=== PATIENT | female | born 1980 | race Two or more races ===

== ENCOUNTER 2023-04-22 14:47 | Outpatient (AMB) | payer MEDICAID, SELFPAY ==
--- NOTE | 2023-04-22 14:54 | MHC.OFFVIS ---
Intake Vital Signs 04/22/23 15:01 Height 5 ft 5 in Weight 192 lb 2 oz BMI 32.0 BP 126/68 Blood Pressure Location Lt brachial Position Sitting Respiration 16 Pulse 80 Pulse Source Pulse Oximeter Pulse Oximetry (%) 98 Oxygen Delivery Method Room Air Intake Visit Reasons: ENP-Nocturnal dyspnea-Confirmed Intake Note: Pt presents for new pt evaluation for nocturnal dyspnea. Pt reports snoring, waking up tired as if she has not had a full nights rest. 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 Pt reports snoring, gasping arousals with chest pain. Pt reports witnessed apnea spells. Pt has difficulty falling asleep and uses OTC Sleep Aids and it helps her to fall asleep and staying sleep. Sleep questionnaire: Have you ever been diagnosed with a sleep disorder? No. Have you ever had a sleep study in the past? No. Have you ever been treated for a sleep disorder? No. Do you take medications for a sleep disorder? OTC, [facility]. Do you snore? Yes. Do you wake up gasping at night? Yes. Do you have episodes of apneas? Yes. If yes, are they witnessed? Yes, by her . Do you have episodes of nocturnal chest pain or dyspnea? Yes, chest pain with palpitation. Do you have difficulty initiating sleep? Yes. Do you have difficulty maintaining sleep? No. Do you wake up tired? Yes. Do you have headaches upon awakening? Yes, little headache ,but goes away within 30 min. Do you wake up with dry mouth or throat? Yes. Do you have GERD? No. Do you have nocturia? Yes, 3-4 times. Do you have nocturnal leg cramps? No. Do you have symptoms of restless legs? No. Do you act out your dreams? No. Sleep hygiene questionnaire: What is your usual sleep routine? Usual bedtime is at 10 pm; Usual wake up time is at 4-5 am. Do you take naps? No. Is your sleep environment cool, dark, and quiet? Yes. Do you exercise? Walking. Do you take caffeine or other stimulants? Coffee in the morning. Do you use electronics in bed? TV before bedtime. What is your work schedule? 9 am to 3:30 pm. Hypersomnolence questionnaire: Do you have daytime tiredness or fatigue? Yes. Do you easily fall asleep when inactive? No. Have you ever had episodes of sudden weakness? No. Have you ever had episodes of sudden weakness associated with strong emotions? No. PFSH Surgical History (Updated 04/22/23 @ 15:08 by Savannah Billings CMA) H/O breast augmentation H/O abdominoplasty Previous section Family History (Updated 04/22/23 @ 15:09 by Savannah Billings CMA) Father HTN (hypertension) Mother HTN (hypertension) Mother No problems noted. Social History (Updated 04/22/23 @ 15:10 by Savannah Billings CMA) Household Members: Family Housing: House Alcohol intake: current Alcohol intake frequency: a few times a week Alcohol type: hard liquor Patient Tobacco Use Status: Former Tobacco user Years Smoked: Quit 1 year ago Female Reproductive History Menstrual Age of Menarche: 10 Review of Systems Const All systems reviewed & are unremarkable except as noted in HPI and below Physical Exam Vital Signs: Last Vital Signs Pulse 80 04/22/23 15:01 Resp 16 04/22/23 15:01 BP 126/68 04/22/23 15:01 Pulse Ox 98 04/22/23 15:01 Oxygen Delivery Method Room Air 04/22/23 15:01 BMI result Body Mass Index 32.0 Const General: cooperative Nutritional Appearance: obese Orientation/consciousness: patient oriented x3 Neck Neck: Yes full ROM and Yes supple Resp Effort & Inspection: normal respiratory effort and able to speak in complete sentences Neuro General: patient oriented x3, gait normal and moves all extremities Cranial nerves: Yes CN's II-XII intact bilaterally Cognition (Neuro): normal cognition Gait exam (Neuro): Normal gait present Motor exam (neuro): 5/5 motor strength present throughout, Pronator motor function not present and no tremor noted Psych Appearance: grossly normal Mental Status: mental status grossly normal Speech and movement: Normal speech and movement present Affect: normal affect Attitude: cooperative Assessment & Plan Assessment & Plan (1) Snoring: Code(s): R06.83 - Snoring (2) Witnessed episode of apnea: Code(s): R06.81 - Apnea, not elsewhere classified (3) Daytime sleepiness: Code(s): R40.0 - Somnolence Plan Pt is advised to undergo home sleep study to assess for sleep apnea. Will f/u with pt after study to discuss results and appropriate treatment options. Sleep hygiene education provided. Limit electronic use before bedtime. Wt reduction advised. Pt to call with any worsening concerns or questions. Orders: Orders RT home sleep study Today R06.81 - Apnea, not elsewhere classified, R06.83 - Snoring, R40.0 - Somnolence Coding Level of Care Code New Pt Level 3 (44113) Diagnoses Snoring R06.83 Witnessed episode of apnea R06.81 Daytime sleepiness R40.0
[2023-04-22 15:01] VITALS: BP 126/68; PULSE 80; RESP 16; O2SAT 98; BMI 32.0
== END 2023-04-22 15:32 | disposition home or self-care (01) ==
PROVIDERS: PCP Physician Assistant Medical; Visit Provider Nurse Practitioner Family
DX: R06.83 Snoring (principal); R06.81 Apnea, not elsewhere classified; R40.0 Somnolence
CPT/HCPCS: 99203

== ENCOUNTER → 2023-04-22 14:47 | Outpatient (BNVA) | payer MEDICAID, SELFPAY | PROVIDERS: PCP Physician Assistant Medical; Visit Provider Nurse Practitioner Family | DX: R06.83 Snoring (principal); R06.81 Apnea, not elsewhere classified; R40.0 Somnolence | CPT/HCPCS: 99212 ==

== ENCOUNTER → 2023-06-23 14:21 | Outpatient (REF) | payer MEDICAID, SELFPAY | LOC: HO.SL 14:21 | PROVIDERS: Visit Provider Nurse Practitioner Family | DX: R40.0 Somnolence (principal); R06.83 Snoring; G47.33 Obstructive sleep apnea (adult) (pediatric) | CPT/HCPCS: 95806 ==

== ENCOUNTER → 2023-06-23 14:44 | Outpatient (BNV) | payer MEDICAID, SELFPAY | PROVIDERS: Visit Provider Psychiatry & Neurology Neurology | DX: G47.33 Obstructive sleep apnea (adult) (pediatric) (principal) | CPT/HCPCS: 95806 ==

== ENCOUNTER 2023-07-29 14:41 | Outpatient (AMB) | payer MEDICAID, SELFPAY ==
--- NOTE | 2023-07-29 14:59 | MHC.OFFVIS ---
Intake Vital Signs 07/29/23 15:07 Height 5 ft 5 in Weight 193 lb 8 oz BMI 32.2 BP 115/72 Blood Pressure Location Lt brachial Position Sitting Pulse 80 Pulse Source Pulse Oximeter Pulse Oximetry (%) 97 Oxygen Delivery Method Room Air Intake Visit Reasons: 4 mon f/u - CONF w/address Intake Note: Patient presents for 4 month F/U. Pt. is leaving for 3 weeks to [place]. She will be bringing CPAP machine but is wondering if compliance will transmit. Allergies No Known Allergies Allergy (Verified 07/29/23 15:06) HPI HPI Comments History of Present Illness Details 43 y/o female patient presents for follow up of sleep study. The home sleep study result was significant for a mild degree of sleep apnea. The AHI was 9/hr and oxygen toy was 82%. APAP [id number] ordered. Pt reports she picked up CPAP this morning. She will travel to next week. [facility] Surgical History H/O breast augmentation H/O abdominoplasty Previous section Family History Father HTN (hypertension) Mother HTN (hypertension) Mother No problems noted. Social History Household Members: Family Housing: House Alcohol intake: current Alcohol intake frequency: a few times a week Alcohol type: hard liquor Patient Tobacco Use Status: Former Tobacco user Years Smoked: Quit 1 year ago Female Reproductive History Menstrual Age of Menarche: 10 Review of Systems Const All systems reviewed & are unremarkable except as noted in HPI and below Physical Exam Vital Signs: Last Vital Signs Pulse 80 07/29/23 15:07 BP 115/72 07/29/23 15:07 Pulse Ox 97 07/29/23 15:07 Oxygen Delivery Method Room Air 07/29/23 15:07 BMI result Body Mass Index 32.2 Const General: cooperative Nutritional Appearance: obese Orientation/consciousness: patient oriented x3 Neck Neck: Yes full ROM and Yes supple Resp Effort & Inspection: normal respiratory effort and able to speak in complete sentences Neuro General: patient oriented x3, gait normal and moves all extremities Cranial nerves: Yes CN's II-XII intact bilaterally Cognition (Neuro): normal cognition Gait exam (Neuro): Normal gait present Motor exam (neuro): 5/5 motor strength present throughout, Pronator motor function not present and no tremor noted Psych Appearance: grossly normal Mental Status: mental status grossly normal Speech and movement: Normal speech and movement present Affect: normal affect Attitude: cooperative Assessment & Plan Assessment & Plan (1) [place] (obstructive sleep apnea): Comment: Mild degree of sleep apnea. The AHI was 9/hr, and oxygen toy was 82%. Code(s): G47.33 - Obstructive sleep apnea (adult) (pediatric) Plan Start APAP at [id number]. Stressed complaince, use CPAP nightly and more than 4 hrs. Advised patient to bring CPAP to DRDagoberto Garcia reduction advised. Coding Level of Care Code Est Pt Level 3 (83041) Diagnoses [place] (obstructive sleep apnea) G47.33
[2023-07-29 15:07] VITALS: BP 115/72; PULSE 80; O2SAT 97; BMI 32.2
== END 2023-07-29 15:22 | disposition home or self-care (01) ==
PROVIDERS: PCP Physician Assistant Medical; Visit Provider Nurse Practitioner Family
DX: G47.33 Obstructive sleep apnea (adult) (pediatric) (principal)
CPT/HCPCS: 99213

== ENCOUNTER → 2023-07-29 14:41 | Outpatient (BNVA) | payer MEDICAID, SELFPAY | PROVIDERS: PCP Physician Assistant Medical; Visit Provider Nurse Practitioner Family | DX: G47.33 Obstructive sleep apnea (adult) (pediatric) (principal) | CPT/HCPCS: 99212 ==

== ENCOUNTER 2024-01-24 14:29 | Outpatient (AMB) | payer MEDICAID, SELFPAY ==
--- NOTE | 2024-01-24 14:31 | A.OFFVIS_ITS ---
Vital Signs 01/24/24 14:32 Height 5 ft 5 in Weight 192 lb 8 oz BMI 32.0 BP 122/80 Blood Pressure Location Rt brachial Position Sitting Pulse 73 Pulse Source Pulse Oximeter Pulse Oximetry (%) 97 Oxygen Delivery Method Room Air Intake Visit Reasons: Follow up Intake Note: Pt will like to get medication to help her sleep. Pt needs a new mask for her cpap. Casino Cashier Required: Yes Accompanied by: Self / Same As Patient Allergies No Known Allergies Allergy (Verified 07/29/23 15:06) Medication List - Last Reconciled 01/24/24 by GARRY Ontiveros amlodipine 10 mg PO DAILY hydrochlorothiazide 12.5 mg PO DAILY losartan 100 mg PO DAILY HPI Comments Details: 43-yr-old male presents for follow-up visit of sleep apnea. Pt denies any significant interval medical history changes. Pt states that overall, she is sleeping better since starting APAP tx, however she is still having sleep difficulties. She has been using either Zyquil melatonin 10mg or generic benadryl 25mg- 3 caps when she gets hme from work, but these do not help enough. She would like to try a different PAP mask as she is a side sleeper, and her current mask is bothersome. She does wakes up very tired when she cannot sleep at least 8-9 hrs. Her neck can be tight at night. She works 3pm-2am, and it takes [address] home[address] Her room is dark. On work days sleeps from 3am to 12-1pm. On non-work days, goes to bed at ~11pm. She takes 1 coffee in the afternoon after waking up. Her work is physically active. Denies restless legs, leg cramps. [address], [facility] Email: [email or web address] Compliance Report Usage 12/25/2023 - 01/23/2024 Usage days 30/30 days (100%) >= 4 hours 28 days (93%) < 4 hours 2 days (7%) Usage hours 215 hours 23 minutes Average usage (total days) 7 hours 11 minutes Average usage (days used) 7 hours 11 minutes Median usage (days used) 7 hours 10 minutes Total used hours (value since last reset - 01/23/2024) 1,333 hours [employer] 10 AutoSet Serial number [id number] Mode AutoSet Min Pressure 5 cmH2O Max Pressure 20 cmH2O EPR Fulltime EPR level 2 Response Standard Therapy Pressure - cmH2O Median: 8.7 95th percentile: 11.2 Maximum: 12.7 Leaks - L/min Median: 0.0 95th percentile: 2.6 Maximum: 47.1 Events per hour AI: 4.7 HI: 0.8 AHI: 5.5 Apnea Index Central: 1.8 Obstructive: 2.7 Unknown: 0.1 RERA Index 0.2 PFSH Surgical History H/O breast augmentation H/O abdominoplasty Previous section Family History Father HTN (hypertension) Mother HTN (hypertension) Mother No problems noted. Social History Household Members: Family Housing: House Alcohol intake: current Alcohol intake frequency: a few times a week Alcohol type: hard liquor Patient Tobacco Use Status: Former Tobacco user Years Smoked: Quit 1 year ago Female Reproductive History Menstrual Age of Menarche: 10 Physical Exam Vital Signs: Last Vital Signs Pulse 73 01/24/24 14:32 BP 122/80 01/24/24 14:32 Pulse Ox 97 01/24/24 14:32 Oxygen Delivery Method Room Air 01/24/24 14:32 BMI result Body Mass Index 32.0 Const General: no acute distress Orientation/consciousness: patient oriented x3 HEENT Other: Mallampati stage Resp Effort & Inspection: normal respiratory effort and able to speak in complete sentences Auscultation: clear to auscultation bilaterally Cardio Rate: regular rate Rhythm: regular rhythm Neuro General: patient oriented x3 Psych Mental Status: mental status grossly normal Speech and movement: Clear speech present Attitude: cooperative Results Reviewed Results Reviewed: PAP compliance report- see HPI Assessment & Plan Assessment & Plan (1) [place] (obstructive sleep apnea): Comment: Mild degree of sleep apnea. The AHI was 9/hr, and oxygen toy was 82%. 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 Continue to use APAP nightly > 4 hours, as pt continues to have good clinical effect from use. Will request new mask fitting and supplies- order written. Clean CPAP machine and supplies routinely. Change CPAP supplies routinely. Pt to contact us or respiratory company with any questions or concerns. For residual sleep difficulties: Reviewed shift-work sleep hygiene tips, such as maintaining a regular sleep schedule. Stop OTC benadryl. Start Amitriptyline 10-20mg daily at bedtime. Potential side effects include but are not limited to fatigue, cardiac arrhythmias, mood changes. Pt to follow-up in 6 months or sooner prn. Medications: New amitriptyline 10 - 20 mg (1 - 2 x 10 mg) PO BEDTIME 30 days 60 tabs 3RF Coding Level of Care Code Est Pt Level 4 (47293) Diagnoses [place] (obstructive sleep apnea) G47.33 Sleep difficulties G47.9 Shift work sleep disorder G47.26
[2024-01-24 14:32] VITALS: BP 122/80; PULSE 73; O2SAT 97; BMI 32.0
== END 2024-01-24 15:38 | disposition home or self-care (01) ==
PROVIDERS: PCP Physician Assistant Medical; Visit Provider Nurse Practitioner Family
DX: G47.33 Obstructive sleep apnea (adult) (pediatric) (principal); G47.9 Sleep disorder, unspecified; G47.26 Circadian rhythm sleep disorder, shift work type
CPT/HCPCS: 99214

== ENCOUNTER → 2024-01-24 14:29 | Outpatient (BNVA) | payer MEDICAID, SELFPAY | PROVIDERS: PCP Physician Assistant Medical; Visit Provider Nurse Practitioner Family | DX: G47.33 Obstructive sleep apnea (adult) (pediatric) (principal); G47.26 Circadian rhythm sleep disorder, shift work type; Z99.89 Dependence on other enabling machines and devices | CPT/HCPCS: 99212 ==